=== PATIENT | male | born 1955 | race Caucasian/White ===

== ENCOUNTER 2016-05-02 18:24 | Outpatient (CLI) | payer OTHER ==
[~2016-05-02 18:24] MED LIST: ALBUTEROL HFA60 DOSE IN; BUPROPION HCL150 M2 PO; BUSPIRONE HCL10 MG PO; CARAFATE EQUIVAL1 GM PO; CEFTIN500 MG PO; CITALOPRAM HYDR10 MG PO; FERROUS SULFAT324 M1; GABAPENTIN100 MG PO; HYDRALAZINE HCL25 MG PO; ISOSORBIDE MONO60 MG PO; LANTUS SOL100 UNITS/ SC; OXAYDO5 MG PO; PANTOPRAZOLE SO40 MG PO; PHENERGAN EQUIV25 MG PO; QVAR40 MCG IN; VITAMIN B12; ZANTAC25 MG/ML; ZOFRAN ODT4 MG PO; ZOFRAN4 MG PO
--- NOTE | 2016-05-02 19:07 | DIAGNOSTIC IMAGING REPORT ---
PROCEDURE: XR CHEST 2 VIEW INDICATION: R/O THORACENTESIS TECHNIQUE: PA and lateral view. COMPARISON: Chest x-ray 12/17/2015 FINDINGS: Progression of moderate to large right and improved small left pleural effusions. Mild cardiomegaly with improved pulmonary vascular congestion. Mild bibasilar atelectasis. Bony thorax is unremarkable. IMPRESSION: 1. CHF with progression of moderate to large right pleural effusion 2. Improved small left pleural effusion
== END 2016-05-02 23:00 ==
LOC: XR SRH 18:24
DX: I50.9 Heart failure, unspecified (principal)

== ENCOUNTER 2016-05-06 18:04 | Emergency (ER) | payer OTHER ==
--- NOTE | 2016-05-06 19:20 | DIAGNOSTIC IMAGING REPORT ---
PROCEDURE: XR CHEST 2 VIEW INDICATION: SHORTNESS OF BREATH TECHNIQUE: PA and lateral views. COMPARISON: Compared to chest x-ray on 05/02/2016. FINDINGS: Mild increase in moderate to large right pleural effusion with fluid tracking into the fissure. Mild focal chronic atelectasis in the right upper lung. Small left pleural effusion. Mild cardiomegaly with pulmonary vascular congestion and interstitial changes. Thorax unchanged. IMPRESSION: 1. Mild increase in moderate to large right pleural effusion. 2. Small left pleural effusion. 3. Mild cardiomegaly and chronic congestive heart failure 4. Mild focal atelectasis in the right anterior upper lung. 5. Findings discussed with Dr. Casper Ruffin
--- NOTE | 2016-05-06 19:59 | DIAGNOSTIC IMAGING REPORT ---
PROCEDURE: US THORACENTESIS WO TUBE-RIGHT INDICATION: Shortness of breath. Right pleural effusion. COMPARISON: Compared to chest x-ray earlier today (05/06/2016) and prior ultrasound thoracentesis on 12/16/2015 (2350 ml). TECHNIQUE: Informed consent was obtained and the patient was advised of the usual risks and complications including infection, bleeding, allergy and pneumothorax. Upper position. Following sterile preparation and 1% lidocaine local anesthetic, ultrasound guidance was utilized to place a 16-gauge angiocatheter in the right posterolateral thorax. 1850 ml of clear mac fluid was aspirated. The patient tolerated the procedure well and was transferred back to the emergency department in satisfactory condition with instructions to call for any untoward symptoms (chest pain, shortness of breath). IMPRESSION: 1. Successful ultrasound-guided therapeutic right thoracentesis (1850 ml clear mac fluid).
--- NOTE | 2016-05-06 20:00 | ED CLINICAL REPORT ---
Clinical Report - Physicians/Mid Levels [facility] [address] [place] [address] 05/06/2016 18:04 Patient: JUNE MERRILL Time Seen: 18:19 May 06 2016. Arrived- By private vehicle. Historian- patient. CPT: ER phys charges level 4 (#[id number]). HISTORY OF PRESENT ILLNESS Chief Complaint: (Cloudy urine). This started yesterday Onset. (Yesterday). ( Pt reports that he has had cloudy urine, no other urinary symptoms. Pt reports that he has thoracentesis scheduled for May 11. Pt is hoping to receive thoracentesis here because "I don't know if I'll make it that long." Is scheduled at [facility] in [place]. Pt reports that he has SOB that is positional.). He has had nausea. No vomiting, diarrhea, constipation, abdominal pain or fever. and is still present. The problem is described as moderate. No penile discharge, discomfort with urination, urinary frequency, genital lesion or testicular pain. Able to void. Not voiding only small amounts. Sexual history is noncontributory. Similar symptoms previously: As bad. Diagnosis: Urinary Tract Infection. Recent medical care: The patient was seen recently at this facility in the office (4 days ago). Evaluation/treatment: CXR- Scheduled to be drained in [place] May 11. Diagnosis: (Right pleural effusion.). REVIEW OF SYSTEMS No fever, chills, flank pain, hematuria or abdominal pain. No vomiting, diarrhea, black stools, bloody stools or headache. No sore throat, chest pain, cough, joint pain or skin rash. The patient has had difficulty breathing (chronically). All systems otherwise negative, except as recorded above. PAST HISTORY ( Lower Extremity Pain. Congestive Heart Failure. Pleural Effusion. Renal Failure. Pneumonia. COPD - Chronic Obstructive Pulmonary Disease. Hypertension. UTI - Urinary Tract Infection. Depression. Neuropathy. Nelson's esophagus. Rt leg multiple surgery. Diabetes Mellitus. ADDITIONAL SURGERIES: Rt leg.). Medications: Pantoprazole Sodium Oral 40 mg, daily. Ondansetron Oral 8 mg, 4x a day. Metolazone Oral (Tablet 2.5 mg). Isosorbide Dinitrate Oral. HydrALAZINE HCl Oral (Tablet 25 mg). Gabapentin Oral 300 mg. Furosemide Oral 80 mg, 2x a day. Folic Acid Oral. Cyanocobalamin Injection. Cholecalciferol Oral. Calcium Acetate Oral. BuPROPion HCl Oral 150 mg, 2x a day. Beclomethasone Dipropionate Inhalation. Aspirin Oral (Tablet Chewable 81 mg). Procrit Injection. AmLODIPine Besylate Oral 10 mg. Albuterol Sulfate Inhalation. Allergies: None. SOCIAL HISTORY Former smoker. Occasional alcohol use. No drug use. ADDITIONAL NOTES The nursing notes have been reviewed. PHYSICAL EXAM Vital Signs: 05/06/2016 18:10 BP: 121/72. HR: 75. RR: 18. O2 saturation: 97%. Temp: 97.4 F. Pain level now: 210. Appearance: Alert. No acute distress. ENT: Normal external inspection. Pharynx normal. Neck: Neck supple. CVS: Heart sounds normal. Respiratory: Mild respiratory distress. (Decreased breath sounds right , posterior thorax.). Abdomen: Soft and nontender. Back: Normal external inspection. No CVA tenderness. Skin: Skin warm. Normal skin color. No rash. Extremities: Bilateral mild pitting edema of the lower extremities. Extremities exhibit normal ROM. Neuro: Oriented X 3. No motor deficit. No sensory deficit. LABS, X-RAYS, AND EKG Laboratory Tests: UA-Culture if indicated: (GALILEO: 05/06/2016 18:40) ( MsgRcvd 05/06/2016 19:07) Final results Test Result Flag Units (Reference) URINE COLOR YELLOW URINE APPEARANCE CLEAR URINE GLUCOSE 1+ (NEGATIVE) URINE BILIRUBIN NEGATIVE (NEGATIVE) URINE KETONE NEGATIVE (NEGATIVE) URINE SPECIFIC GRAVITY 1.020 (1.010-1.030) URINE PH 6.0 (5.0-8.0) URINE PROTEIN 3+ (NEGATIVE) URINE UROBILINOGEN 0.2 EU/dL (0.2-1.0) URINE NITRITE NEGATIVE (NEGATIVE) URINE BLOOD TRACE-INTACT (NEGATIVE) URINE LEUK ESTERASE NEGATIVE (NEGATIVE) URINE RBC 3-5 rbc/hpf (0-1) URINE WBC 0-1 wbc/hpf (0-1) URINE EPITHELIAL CELLS 0-1 EPI/hpf (0-5) URINE BACTERIA TRACE (<1+) (NONE SEEN) URINE COMMENT CULT NOT INDICATED 1+ AMORPHOUSURINE CULTURES ARE SET-UP BASED ON THE FOLLOWING CRITERIA:POSITIVE NITRITEPOSITIVE LEUKOCYTE ESTERASEGREATER THAN 10 WHITE BLOOD CELLSMODERATE (2+) OR GREATER BACTERIA . PROGRESS AND PROCEDURES Course of Care: 18:34 05/06/16. patient notes that he has been short of breath especially with laying down. He worries that he won't be able to make it to his appointment to get a thoracentesis. His ride today says that he has no transportation to get to [place] and will not be older get to that appointment. That is more reasonable for him to get to our hospital. The patient is requesting a thoracentesis at our hospital. Patient is not emergent respiratory watts. He has a normal O2 sat and normal respiratory rate and is in no distress. 18:57 05/06/16. Dr. Cuenca has reviewed the x-ray. He notes more fluid on the right side than that 4 days ago. He is prepared to drain the fluid via ultrasound thoracentesis. Patient is requesting this procedure. patient's pleural fluid is drained over in radiology successfully. Patient is ready for discharge. He states he can breath much better. No sign of UTI. Patient/family counseled. Disposition: Discharged. Condition: stable and improved. CLINICAL IMPRESSION Recurrent right sided pleural effusion CHF Renal failure. INSTRUCTIONS No strenuous activity. Rest. Warnings: Further evaluation is necessary. GENERAL WARNINGS: Return or contact your physician immediately if your condition worsens or changes unexpectedly, if not improving as expected, or if other problems arise. Your Current Medications: CONTINUE TAKING THE FOLLOWING MEDICATIONS: Albuterol Sulfate Inhalation. AmLODIPine Besylate Oral : 10 mg. Aspirin Oral : Tablet Chewable 81 mg. Beclomethasone Dipropionate Inhalation. BuPROPion HCl Oral : 150 mg 2x a day. Calcium Acetate Oral. Cholecalciferol Oral. Cyanocobalamin Injection. Folic Acid Oral. Furosemide Oral : 80 mg 2x a day. Gabapentin Oral : 300 mg. HydrALAZINE HCl Oral : Tablet 25 mg. Isosorbide Dinitrate Oral. Metolazone Oral : Tablet 2.5 mg. Ondansetron Oral : 8 mg 4x a day. Pantoprazole Sodium Oral : 40 mg daily. Procrit Injection. Follow-up: Follow up with your doctor in four weeks as scheduled. Understanding of the discharge instructions verbalized by patient and family. (Electronically signed by Casper Ruffin MD 05/06/2016 20:26)
--- NOTE | 2016-05-06 20:00 | ED NURSING NOTES ---
Clinical Report - Nurses [facility] [address] [place] [address] 05/06/2016 18:04 Patient: JUNE MERRILL TRIAGE Triage time 18:10 May 06 2016. Acuity: LEVEL 4. Chief Complaint: (Cloudy urine). 18:21 05/06/16. Alert. No acute distress. SEPSIS SCREEN: Sepsis Screen. Negative (no infection suspected/documented). GARY COMA SCORE: Gary Coma Scale: 15- eyes open spontaneously (4); best verbal response- oriented x 4 (5); best motor response- obeys commands (6). --18:21 Xiomara Wilder 18:10 05/06/16. BP: 121/72. HR: 75. RR: 18. O2 saturation: 97% on room air. Temp: 97.4 F. Pain level now: 05/13. --18:21 Xiomara Wilder. Weight: 90.7 kg stated. Height/Length: 76 inches Per Patient. BMI: 24.3. --18:20 Xiomara Wilder. Medications Albuterol Sulfate Inhalation. --18:13 Xiomara Wilder AmLODIPine Besylate Oral 10 mg. --18:13 Xiomara Wilder Procrit Injection. --18:13 Xiomara Wilder Aspirin Oral (Tablet Chewable 81 mg). --18:13 Xiomara Wilder Beclomethasone Dipropionate Inhalation. --18:14 Xiomara Wilder BuPROPion HCl Oral 150 mg, 2x a day. --18:14 Xiomara Wilder Calcium Acetate Oral. --18:14 Xiomara Wilder Cholecalciferol Oral. --18:14 Xiomara Wilder Cyanocobalamin Injection. --18:14 Xiomara Wilder Folic Acid Oral. --18:14 Xiomara Wilder Furosemide Oral 80 mg, 2x a day. --18:15 Xiomara Wilder Gabapentin Oral 300 mg. --18:15 Xiomara Wilder HydrALAZINE HCl Oral (Tablet 25 mg). --18:15 Xiomara Wilder Isosorbide Dinitrate Oral. --18:15 Xiomara Wilder Metolazone Oral (Tablet 2.5 mg). --18:15 Xiomara Wilder Ondansetron Oral 8 mg, 4x a day. --18:16 Xiomara Wilder Pantoprazole Sodium Oral 40 mg, daily. --18:16 Xiomara Wilder. Medication/allergy information source: the patient. --18:21 Xiomara Wilder. Allergies None. --18:16 Xiomara Wilder. History Arrived by private vehicle. Historian: patient. Accompanied by family. Primary physician (Christian). Onset. (Yesterday). ( Pt reports that he has had cloudy urine, no other urinary symptoms. Pt reports that he has thoracentesis scheduled for May 11. Pt is hoping to receive thoracentesis here because "I don't know if I'll make it that long." Is scheduled at [facility] in [place]. Pt reports that he has SOB that is positional.). He has had nausea. No vomiting, diarrhea, constipation, abdominal pain or fever. PAST MEDICAL HX: Diabetes mellitus. Immunizations: up-to-date. SOCIAL HX: Former smoker, end date 2013. Occasional alcohol use. No drug use. No recent travel. He has had contact with a sick individual. (Flu). NUTRITIONAL RISK ASSESSMENT: The nutritional risk assessment revealed no deficiencies. FUNCTIONAL ASSESSMENT: Functional assessment: no impairments noted. LEARNING NEEDS ASSESSMENT: The learning needs assessment revealed no barriers. FALL RISK ASSESSMENT: Fall risk assessment completed. Risk factors identified include patient impairment of mobility. SKIN INTEGRITY ASSESSMENT: Skin integrity risk assessment completed. No skin integrity risk identified. --18:21 Xiomara Wilder. PROBLEMS: Lower Extremity Pain. Congestive Heart Failure. Pleural Effusion. Renal Failure. Pneumonia. COPD - Chronic Obstructive Pulmonary Disease. Hypertension. UTI - Urinary Tract Infection. Depression. Neuropathy. Nelson's esophagus. Rt leg multiple surgery. Diabetes Mellitus. --18:17 Xiomara Wilder. ADDITIONAL SURGERIES: Rt leg. --18:17 Xiomara Wilder. Assessment The patient states feels the same. --18:21 Xiomara Wilder. Interventions ID band on patient. --18:21 Xiomara Wilder. PHYSICAL ASSESSMENT 18:22 05/06/16. To room via wheelchair. GENERAL / NEURO / PSYCH: Alert. Oriented X 4. Appears in no acute distress. HEENT: Mucous membranes are pink. RESPIRATORY: Respirations not labored. CVS: Capillary refill less than 2 seconds. GI / : Abdomen soft and nontender. SKIN: Skin is warm and dry. --18:22 Xiomara Wilder. NURSING PROGRESS NOTES 18:05/06/16. The plan of care for this patient has been created. Head of bed elevated. Reassurance given. Two patient identifiers checked. Call light placed in reach. Side rails up x 1. Bed placed in lowest position. Brakes of bed on. Patient ready for evaluation- chart flagged and ED physician and TIRE ADJUSTER notified. --18:22 Xiomara Wilder 18:36 05/06/16. Patient transported to radiology by stretcher with [employer]. --18:36 Xiomara Wilder 18:42 05/06/16. Patient returned from radiology with tech. (18:42 May 06 2016). --18:42 Xiomara Wilder 18:42 05/06/16. Patient ID band checked for patient name and birthdate: family confirmed urine collected with return of yellow-colored clear urine; sample sent to lab. --18:42 Xiomara Wilder 19:19 05/06/16. --19:19 Xiomara Wilder 19:18 05/06/16. BP: 116/67 taken on the right arm, while sitting. HR: 73. RR: 17. O2 saturation: 97% on room air. Pain level now: 05/13. --19:19 Xiomara Wilder. DISPOSITION / DISCHARGE 20:05/06/16. Departure time: 20:May 06 2016. Condition at departure: improved. The goals identified in the patient's plan of care were met. No learning barriers present. Discharge instructions provided and reviewed with the patient and family. Reviewed medication(s). Treatments reviewed. Reviewed referral to a primary care physician for followup. Patient and family verbalized understanding. Written instructions provided in Uruguayan. The patient was discharged by the physician. He was discharged home and accompanied by family. He left the Emergency Department in a wheelchair, via private vehicle and (wheeled out by RN). Family member driving. FALL RISK ASSESSMENT: Fall risk assessment completed. No fall risk identified. --20:19 Xiomara Wilder 20:17 05/06/16. BP: 127/70. HR: 73. RR: 17. O2 saturation: 98% on room air. Temp: 97.4 F. Pain level now: 06/10. --20:19 Xiomara Wilder. Locked/Released at 05/06/2016 21:09 by Xiomara Wilder,
--- NOTE | 2016-05-06 20:00 | ED NURSING NOTES ---
Clinical Report - Nurses [facility] [address] [place] [address] 05/06/2016 18:04 Patient: JUNE MERRILL TRIAGE Triage time 18:10 May 06 2016. Acuity: LEVEL 4. Chief Complaint: (Cloudy urine). 18:21 05/06/16. Alert. No acute distress. SEPSIS SCREEN: Sepsis Screen. Negative (no infection suspected/documented). GARY COMA SCORE: Gary Coma Scale: 15- eyes open spontaneously (4); best verbal response- oriented x 4 (5); best motor response- obeys commands (6). --18:21 Xiomara Wilder 18:10 05/06/16. BP: 121/72. HR: 75. RR: 18. O2 saturation: 97% on room air. Temp: 97.4 F. Pain level now: 05/13. --18:21 Xiomara Wilder. Weight: 90.7 kg stated. Height/Length: 76 inches Per Patient. BMI: 24.3. --18:20 Xiomara Wilder. Medications Albuterol Sulfate Inhalation. --18:13 Xiomara Wilder AmLODIPine Besylate Oral 10 mg. --18:13 Xiomara Wilder Procrit Injection. --18:13 Xiomraa Wilder Aspirin Oral (Tablet Chewable 81 mg). --18:13 Xiomara Wilder Beclomethasone Dipropionate Inhalation. --18:14 Xiomara Wilder BuPROPion HCl Oral 150 mg, 2x a day. --18:14 Xiomara Wilder Calcium Acetate Oral. --18:14 Xiomara Wilder Cholecalciferol Oral. --18:14 Xiomara Wilder Cyanocobalamin Injection. --18:14 Xiomara Wilder Folic Acid Oral. --18:14 Xiomara Wilder Furosemide Oral 80 mg, 2x a day. --18:15 Xiomara Wilder Gabapentin Oral 300 mg. --18:15 Xiomara Wilder HydrALAZINE HCl Oral (Tablet 25 mg). --18:15 Xiomara Wilder Isosorbide Dinitrate Oral. --18:15 Xiomara Wilder Metolazone Oral (Tablet 2.5 mg). --18:15 Xiomara Wilder Ondansetron Oral 8 mg, 4x a day. --18:16 Xiomara Wilder Pantoprazole Sodium Oral 40 mg, daily. --18:16 Xiomara Wilder. Medication/allergy information source: the patient. --18:21 Xiomara Wilder. Allergies None. --18:16 Xiomara Wilder. History Arrived by private vehicle. Historian: patient. Accompanied by family. Primary physician (Christian). Onset. (Yesterday). ( Pt reports that he has had cloudy urine, no other urinary symptoms. Pt reports that he has thoracentesis scheduled for May 11. Pt is hoping to receive thoracentesis here because "I don't know if I'll make it that long." Is scheduled at [facility] in [place]. Pt reports that he has SOB that is positional.). He has had nausea. No vomiting, diarrhea, constipation, abdominal pain or fever. PAST MEDICAL HX: Diabetes mellitus. Immunizations: up-to-date. SOCIAL HX: Former smoker, end date 2013. Occasional alcohol use. No drug use. No recent travel. He has had contact with a sick individual. (Flu). NUTRITIONAL RISK ASSESSMENT: The nutritional risk assessment revealed no deficiencies. FUNCTIONAL ASSESSMENT: Functional assessment: no impairments noted. LEARNING NEEDS ASSESSMENT: The learning needs assessment revealed no barriers. FALL RISK ASSESSMENT: Fall risk assessment completed. Risk factors identified include patient impairment of mobility. SKIN INTEGRITY ASSESSMENT: Skin integrity risk assessment completed. No skin integrity risk identified. --18:21 Xiomara Wilder. PROBLEMS: Lower Extremity Pain. Congestive Heart Failure. Pleural Effusion. Renal Failure. Pneumonia. COPD - Chronic Obstructive Pulmonary Disease. Hypertension. UTI - Urinary Tract Infection. Depression. Neuropathy. Nelson's esophagus. Rt leg multiple surgery. Diabetes Mellitus. --18:17 Xiomara Wilder. ADDITIONAL SURGERIES: Rt leg. --18:17 Xiomara Wilder. Assessment The patient states feels the same. --18:21 Xiomara Wilder. Interventions ID band on patient. --18:21 Xiomara Wilder. PHYSICAL ASSESSMENT 18:22 05/06/16. To room via wheelchair. GENERAL / NEURO / PSYCH: Alert. Oriented X 4. Appears in no acute distress. HEENT: Mucous membranes are pink. RESPIRATORY: Respirations not labored. CVS: Capillary refill less than 2 seconds. GI / : Abdomen soft and nontender. SKIN: Skin is warm and dry. --18:22 Xiomara Wilder. NURSING PROGRESS NOTES 18:05/06/16. The plan of care for this patient has been created. Head of bed elevated. Reassurance given. Two patient identifiers checked. Call light placed in reach. Side rails up x 1. Bed placed in lowest position. Brakes of bed on. Patient ready for evaluation- chart flagged and ED physician and SSRS REPORT DEVELOPER notified. --18:22 Xiomara Wilder 18:36 05/06/16. Patient transported to radiology by stretcher with [employer]. --18:36 Xiomara Wilder 18:42 05/06/16. Patient returned from radiology with tech. (18:42 May 06 2016). --18:42 Xiomara Wilder 18:42 05/06/16. Patient ID band checked for patient name and birthdate: family confirmed urine collected with return of yellow-colored clear urine; sample sent to lab. --18:42 Xiomara Wilder 19:19 05/06/16. --19:19 Xiomara Wilder 19:18 05/06/16. BP: 116/67 taken on the right arm, while sitting. HR: 73. RR: 17. O2 saturation: 97% on room air. Pain level now: 05/13. --19:19 Xiomara Wilder. DISPOSITION / DISCHARGE 20:05/06/16. Departure time: 20:May 06 2016. Condition at departure: improved. The goals identified in the patient's plan of care were met. No learning barriers present. Discharge instructions provided and reviewed with the patient and family. Reviewed medication(s). Treatments reviewed. Reviewed referral to a primary care physician for followup. Patient and family verbalized understanding. Written instructions provided in Montenegrin. The patient was discharged by the physician. He was discharged home and accompanied by family. He left the Emergency Department in a wheelchair, via private vehicle and (wheeled out by RN). Family member driving. FALL RISK ASSESSMENT: Fall risk assessment completed. No fall risk identified. --20:19 Xiomara Wilder 20:17 05/06/16. BP: 127/70. HR: 73. RR: 17. O2 saturation: 98% on room air. Temp: 97.4 F. Pain level now: 06/10. --20:19 Xiomara Wilder. Locked/Released at 05/06/2016 21:09 by Xiomara Wilder,
--- NOTE | 2016-05-06 20:00 | ED ORDER SUMMARY ---
..... Patient: JUNE MERRILL OrderSheet [facility] VisitID: [id number] [place] [address] 61y, M Registration Date/Time: 05/06/2016 ORDER SHEET Weight: 90.7 kg (stated) Allergies: None GENERAL ORDERS: Chest 2V Urgent (18:29 05/06/2016 Laura MACIAS) (Ack 18:39 Mckenzie) (18:42 ASchmuck) UA-Culture if indicated Urgent (18:29 05/06/2016 Laura MACIAS) (Ack 18:39 Mceknzie) (18:42 ASchmuck) - (US guided thoracentesis, right side: Department of radiology.) (18:55 05/06/2016 Laura MACIAS) (Ack 19:06 Mckenzie) (20:19 ASchmuck) MEDICATION ORDERS: IV FLUIDS: ORDER SHEET NOTES: [Electronically signed by Casper Ruffin MD (20:26 05/06/2016)] [Electronically signed by Xiomara Wilder (21:09 05/06/2016)] [Electronically locked/signed by Xiomara Wilder (21:05/06/2016)]
--- NOTE | 2016-05-06 20:00 | ED ORDER SUMMARY ---
..... Patient: JUNE MERRILL OrderSheet [facility] VisitID: [id number] [place] [address] 61y, M Registration Date/Time: 05/06/2016 ORDER SHEET Weight: 90.7 kg (stated) Allergies: None GENERAL ORDERS: Chest 2V Urgent (18:29 05/06/2016 Laura MACIAS) (Ack 18:39 Mckenzie) (18:42 ASchmuck) UA-Culture if indicated Urgent (18:29 05/06/2016 Laura MACIAS) (Ack 18:39 Mckenzie) (18:42 ASchmuck) - (US guided thoracentesis, right side: Department of radiology.) (18:55 05/06/2016 Laura MACIAS) (Ack 19:06 Mckenzie) (20:19 ASchmuck) MEDICATION ORDERS: IV FLUIDS: ORDER SHEET NOTES: [Electronically signed by Casper Ruffin MD (20:26 05/06/2016)] [Electronically signed by Xiomara Wilder (21:09 05/06/2016)] [Electronically locked/signed by Xiomara Wilder (21:05/06/2016)]
--- NOTE | 2016-05-06 21:10 | ED MAR SUMMARY ---
..... Medication Administration Record [facility] [address] [place], [place] [id number] Patient: JUNE MERRILL Visit ID: [id number] 61y, M Weight: 90.7 kg Height/Length: 76 in BMI: 24.3 ALLERGIES: None
--- NOTE | 2016-05-06 21:10 | ED DISCHARGE INSTRUCTIONS ---
Patient: JUNE MERRILL General Instructions [facility] VisitID: [id number] [place] [address] 61y, M Registration Date/Time: 05/06/2016 Recurrent right sided pleural effusion CHF Renal failure. INSTRUCTIONS No strenuous activity. Rest. Warnings: Further evaluation is necessary. GENERAL WARNINGS: Return or contact your physician immediately if your condition worsens or changes unexpectedly, if not improving as expected, or if other problems arise. Your Current Medications: CONTINUE TAKING THE FOLLOWING MEDICATIONS: Albuterol Sulfate Inhalation. AmLODIPine Besylate Oral : 10 mg. Aspirin Oral : Tablet Chewable 81 mg. Beclomethasone Dipropionate Inhalation. BuPROPion HCl Oral : 150 mg 2x a day. Calcium Acetate Oral. Cholecalciferol Oral. Cyanocobalamin Injection. Folic Acid Oral. Furosemide Oral : 80 mg 2x a day. Gabapentin Oral : 300 mg. HydrALAZINE HCl Oral : Tablet 25 mg. Isosorbide Dinitrate Oral. Metolazone Oral : Tablet 2.5 mg. Ondansetron Oral : 8 mg 4x a day. Pantoprazole Sodium Oral : 40 mg daily. Procrit Injection. Follow-up: Follow up with your doctor in four weeks as scheduled. Understanding of the discharge instructions verbalized by patient and family. No strenuous activity. Rest. (Electronically signed by Casper Ruffin MD 05/06/2016 20:26)
--- NOTE | 2016-05-06 21:10 | ED MED RECONCILIATION SUMMARY ---
Patient: JUNE MERRILL Medication Reconciliation Report [facility] VisitID: [id number] [address] [place] [address] 61y, M Registration Date/Time: 05/06/2016 Weight: 90.7 kg Height/Length: 76 in. BMI: 24.3 ALLERGIES: None The patient's Home Medications are listed below: CONTINUE TAKING THE FOLLOWING MEDICATIONS: Albuterol Sulfate Inhalation AmLODIPine Besylate Oral 10 mg Aspirin Oral (81 mg) Beclomethasone Dipropionate Inhalation BuPROPion HCl Oral 150 mg, 2x a day Calcium Acetate Oral Cholecalciferol Oral Cyanocobalamin Injection Folic Acid Oral Furosemide Oral 80 mg, 2x a day Gabapentin Oral 300 mg HydrALAZINE HCl Oral (25 mg) Isosorbide Dinitrate Oral Metolazone Oral (2.5 mg) Ondansetron Oral 8 mg, 4x a day Pantoprazole Sodium Oral 40 mg, daily Procrit Injection The source(s) of the original Home Medication information: patient The following Medications were given to the patient in the Emergency Department: None. The following Medications were prescribed to the patient: None.
--- NOTE | 2016-05-06 21:10 | ED DISCHARGE INSTRUCTIONS ---
Patient: JUNE MERRILL General Instructions [facility] VisitID: [id number] [place] [address] 61y, M Registration Date/Time: 05/06/2016 Recurrent right sided pleural effusion CHF Renal failure. INSTRUCTIONS No strenuous activity. Rest. Warnings: Further evaluation is necessary. GENERAL WARNINGS: Return or contact your physician immediately if your condition worsens or changes unexpectedly, if not improving as expected, or if other problems arise. Your Current Medications: CONTINUE TAKING THE FOLLOWING MEDICATIONS: Albuterol Sulfate Inhalation. AmLODIPine Besylate Oral : 10 mg. Aspirin Oral : Tablet Chewable 81 mg. Beclomethasone Dipropionate Inhalation. BuPROPion HCl Oral : 150 mg 2x a day. Calcium Acetate Oral. Cholecalciferol Oral. Cyanocobalamin Injection. Folic Acid Oral. Furosemide Oral : 80 mg 2x a day. Gabapentin Oral : 300 mg. HydrALAZINE HCl Oral : Tablet 25 mg. Isosorbide Dinitrate Oral. Metolazone Oral : Tablet 2.5 mg. Ondansetron Oral : 8 mg 4x a day. Pantoprazole Sodium Oral : 40 mg daily. Procrit Injection. Follow-up: Follow up with your doctor in four weeks as scheduled. Understanding of the discharge instructions verbalized by patient and family. No strenuous activity. Rest. (Electronically signed by Casper Ruffin MD 05/06/2016 20:26)
--- NOTE | 2016-05-06 21:10 | ED MAR SUMMARY ---
..... Medication Administration Record [facility] [address] [place], [place] [id number] Patient: JUNE MERRILL Visit ID: [id number] 61y, M Weight: 90.7 kg Height/Length: 76 in BMI: 24.3 ALLERGIES: None
--- NOTE | 2016-05-06 21:10 | ED MED RECONCILIATION SUMMARY ---
Patient: JUNE MERRILL Medication Reconciliation Report [facility] VisitID: [id number] [address] [place] [address] 61y, M Registration Date/Time: 05/06/2016 Weight: 90.7 kg Height/Length: 76 in. BMI: 24.3 ALLERGIES: None The patient's Home Medications are listed below: CONTINUE TAKING THE FOLLOWING MEDICATIONS: Albuterol Sulfate Inhalation AmLODIPine Besylate Oral 10 mg Aspirin Oral (81 mg) Beclomethasone Dipropionate Inhalation BuPROPion HCl Oral 150 mg, 2x a day Calcium Acetate Oral Cholecalciferol Oral Cyanocobalamin Injection Folic Acid Oral Furosemide Oral 80 mg, 2x a day Gabapentin Oral 300 mg HydrALAZINE HCl Oral (25 mg) Isosorbide Dinitrate Oral Metolazone Oral (2.5 mg) Ondansetron Oral 8 mg, 4x a day Pantoprazole Sodium Oral 40 mg, daily Procrit Injection The source(s) of the original Home Medication information: patient The following Medications were given to the patient in the Emergency Department: None. The following Medications were prescribed to the patient: None.
== END 2016-05-06 20:19 | disposition home or self-care (01) ==
LOC: ED SRH 18:04
DX: J90 Pleural effusion, not elsewhere classified (principal); I13.0 Hypertensive heart and chronic kidney disease with heart failure and stage 1 through stage 4 chronic kidney disease, or unspecified chronic kidney disease; I50.9 Heart failure, unspecified; N18.9 Chronic kidney disease, unspecified; R82.99 Other abnormal findings in urine; E11.22 Type 2 diabetes mellitus with diabetic chronic kidney disease; Z79.82 Long term (current) use of aspirin; Z79.899 Other long term (current) drug therapy